=== PATIENT | male | born 1960 | race Caucasian/White ===

== ENCOUNTER 2023-06-30 16:35 | Emergency (ER) | payer MEDICARE, OTHER ==
[~2023-06-30] VITALS: Ht 162.6 cm; Wt 62.7 kg
[2023-06-30 17:31] LABS: BASOPHILS % (AUTO) 0.4 % (0.0-2.0); EOSINOPHILS % (AUTO) 0.7 % (1.0-6.0); HEMATOCRIT 35.2 % (41-53); HEMOGLOBIN 11.7 g/dL (13.5-17.5); LYMPHOCYTES # (AUTO) 1.8 K/uL (1.0-4.8); MEAN CORPUSCULAR HEMOGLOBIN 30.6 pg (26.0-34.0); MEAN CORPUSCULAR HGB CONC 33.3 G/dL (31.0-37.0); MEAN CORPUSCULAR VOLUME 92 fL (80-100); MONOCYTES # (AUTO) 0.6 K/uL (0.1-1.0); MONOCYTES % (AUTO) 7.2 % (2.0-9.0); NEUTROPHILS # (AUTO) 5.4 K/uL (1.8-7.7); NEUTROPHILS % (AUTO) 68.7 % (40.0-70.0); PLATELET COUNT (AUTO) 242 K/uL (150-450); RED BLOOD CELL COUNT(AUTO) 3.84 MIL/uL (4.50-5.90); RED CELL DISTRIBUTION WIDTH 13.4 % (11.5-14.5); WHITE BLOOD COUNT (AUTO) 7.9 K/uL (4.5-11.0)
[2023-06-30 17:41] LABS: ANION GAP 8 mmol/L (8-16); CALCIUM, TOTAL 9.9 mg/dL (8.8-10.5); CARBON DIOXIDE 27 mmol/L (22-29); CHLORIDE 102 mmol/L (98-107); CREATININE 0.66 mg/dL (0.60-1.30); GLOMERULAR FILTR. RATE CALC > 60 mL/min (>60); GLUCOSE,RANDOM 126 mg/dL (70-110); POTASSIUM 3.4 mmol/L (3.5-5.1); SODIUM SERUM 137 mmol/L (136-145); UREA NITROGEN, BLOOD 13 mg/dL (7-18)
[2023-06-30 17:45] LABS: PH,URINE DRUG SCREEN 5.5 (5.0-8.0)
[2023-06-30 17:47] LABS: ALANINE AMINOTRANSFERASE 20 U/L (12-78); ALBUMIN 3.5 g/dL (3.4-5.0); ALKALINE PHOSPHATASE 122 U/L (46-116); ASPARTATE AMINOTRANSFERASE 17 U/L (15-37); BILIRUBIN,TOTAL 0.3 mg/dL (0.1-1.0); TOTAL PROTEIN, SERUM 7.8 g/dL (6.4-8.2)
[2023-06-30 17:52] LABS: ALCOHOL, URINE DRUG SCREEN NEGATIVE (NEGATIVE); AMPHET/METH SCREEN,URINE NEGATIVE (NEGATIVE); BARBITURATE SCREEN, URINE NEGATIVE (NEGATIVE); BENZODIAZEPINES SCREEN,URINE NEGATIVE (NEGATIVE); CANNABINOID SCREEN,URINE NEGATIVE (NEGATIVE); COCAINE SCREEN,URINE NEGATIVE (NEGATIVE); METHADONE SCREEN, URINE NEGATIVE (NEGATIVE); OPIATE SCREEN,URINE NEGATIVE (NEGATIVE); PHENCYCLIDINE SCREEN,URINE NEGATIVE (NEGATIVE)
[2023-06-30 17:54] LABS: ALCOHOL, BLOOD (SERUM) < 3 mg/dL (0-10)
[2023-06-30] MEDS ORDERED: LORazepam 2 MG TABLET PO ONE ×2 (18:15→21:15)
[2023-06-30] MEDS ORDERED: INSU100V52 PO (18:31)
[2023-06-30] MEDS ORDERED: FENO43CA8 PO (18:31)
[2023-06-30] MEDS ORDERED: LITH600C5 PO (18:31)
[2023-06-30] MEDS ORDERED: ARIP15TA27 PO (18:31)
[2023-06-30] MEDS ORDERED: QUET300T2 PO (18:31)
[2023-06-30] MEDS ORDERED: ALOG25TA PO (18:31)
[2023-06-30] MEDS ORDERED: AMLO5TAB66 PO (18:31)
[2023-06-30] MEDS ORDERED: LORA-999 PO (18:31)
[2023-06-30] MEDS ORDERED: AMYL1CAP62 PO (18:31)
[2023-06-30] MEDS ORDERED: INSU100V42 SQ (18:31)
[2023-06-30] MEDS ORDERED: MIRT-89 PO (18:31)
[2023-06-30] MEDS ORDERED: TRAZ-252 PO (18:31)
[2023-06-30] MEDS ORDERED: GABA-1181 PO (18:31)
[2023-06-30 19:42] LABS: COVID AG,FIA SOURCE NASAL SWAB
[2023-06-30 19:55] LABS: SARS-COV2 (COVID) ANTIGEN,FIA Negative (Negative)
[2023-06-30] MEDS ORDERED: HALOPERIDOL 5 MG TABLET PO ONE (21:15)
[2023-06-30] MEDS ORDERED: DiphenhydrAMINE HCL 25 MG CAPSULE PO ONE (21:15)
[2023-07-01 06:00] VITALS: TEMP 97.7
[2023-07-01 06:51] LABS: GLUCOMETER DEV NAME(LOC) ERT.5; GLUCOSE,POINT OF CARE 267 MG/DL (70-110)
[2023-07-01 09:15] VITALS: BP 152/70; PULSE 87; RESP 18
[2023-07-01] MEDS ORDERED: INSULIN GLARGINE,HUM.REC.ANLOG 100 UNITS/ML SQ ONE (13:30)
[2023-07-01 13:51] LABS: GLUCOMETER DEV NAME(LOC) ER.6; GLUCOSE,POINT OF CARE 576 MG/DL (70-110)
== END 2023-07-01 13:55 | disposition short-term general hospital (02) ==
LOC: EMS 16:36
DX: F20.9 Schizophrenia, unspecified (principal); E11.65 Type 2 diabetes mellitus with hyperglycemia; Z88.6 Allergy status to analgesic agent; Z20.822 Contact with and (suspected) exposure to COVID-19
CPT/HCPCS: 99285; 87426; 80053; 82962 ×2; 85025; 36415; 80307; G0480; J1815